=== PATIENT | female | born 1995 | race Caucasian/White ===

== ENCOUNTER 2016-10-08 16:36 | Emergency (ER) | payer OTHER ==
[~2016-10-08] VITALS: Ht 170.2 cm; Wt 59.0 kg
[2016-10-08 17:46] VITALS: BP 122/70
[2016-10-08] MEDS ORDERED: HYDR-971 PO (18:30)
--- NOTE | 2016-10-08 18:30 | PHYS DOC ---
Past Medical History Past Medical History: Other Additional Past Medical Histor: DVT Past Surgical History: No Surgical History Alcohol Use: None Drug Use: None Adult General Chief Complaint Chief Complaint: HAND PROBLEM HPI HPI Patient is a 20 year old female presents emergency department stating that she was roughhousing earlier today around 3:00 when she heard a pop in her left hand. She states she's had increased pain in the hand area along the fifth metacarpal. Patient states that her fingers feel little: The cap refill is brisk less than 2 seconds. She is able to move the fingers without difficulty. Patient states she took her hydrocodone on the way into the emergency department. Patient was right hand dominant. Review of Systems Review of Systems Constitutional: Denies fever or chills [] Eyes: Denies change in visual acuity, redness, or eye pain [] HENT: Denies nasal congestion or sore throat [] Respiratory: Denies cough or shortness of breath [] Cardiovascular: No additional information not addressed in HPI [] GI: Denies abdominal pain, nausea, vomiting, bloody stools or diarrhea [] : Denies dysuria or hematuria [] Musculoskeletal: Denies back pain.. Left hand pain Integument: Denies rash or skin lesions [] Neurologic: Denies headache, focal weakness or sensory changes [] Endocrine: Denies polyuria or polydipsia [] Allergies Allergies Allergies Coded Allergies Type Severity Reaction Last Updated Verified promethazine Allergy Intermediate 10/08/16 Yes Physical Exam Physical Exam Constitutional: Well developed, well nourished, no acute distress, non-toxic appearance. [] HENT: Normocephalic, atraumatic, bilateral external ears normal, oropharynx moist, no oral exudates, nose normal. [] Eyes: PERRLA, EOMI, conjunctiva normal, no discharge. [] Neck: Normal range of motion, no tenderness, supple, no stridor. [] Cardiovascular:Heart rate regular rhythm, no murmur [] Lungs & Thorax: Bilateral breath sounds clear to auscultation [] Skin: Warm, dry, no erythema, no rash. [] Back: No tenderness Extremities: No tenderness, no cyanosis, no clubbing, ROM intact, no edema. Patient with tenderness noted along the left fifth metacarpal area. Swelling noted hands appear to be cool although patient's cap refill is brisk less than 2 seconds. Radial pulses 2+. Neurologic: Alert and oriented X 3, normal motor function, normal sensory function, no focal deficits noted. [] Psychologic: Affect normal, judgement normal, mood normal. [] Current Patient Data Vital Signs Vital Signs Date Time Temp Pulse Resp B/P (MAP) Pulse Ox O2 Delivery O2 Flow Rate FiO2 10/08/16 17:46 98.4 84 16 98 Room Air 98.4 EKG EKG [] Radiology/Procedures Radiology/Procedures [] Course & Med Decision Making Course & Med Decision Making Pertinent Labs and Imaging studies reviewed. (See chart for details) X-ray was positive for fifth metacarpal fracture on the left hand per Dr. Phelps. Patient will be placed in an on a gutter splint. Recommended ice packs on 20 minutes off 20 minutes several times a day elevation as much as possible. Patient will be provided with hydrocodone for severe pain and discomfort in which she was instructed will cause drowsiness do not take any be alert and oriented. Patient was encouraged to use ibuprofen 800 mg every 8 hours with food stop taking few develop an upset stomach. She was encouraged follow-up with orthopedic in the next week. Recommended keeping the splint in place avoid getting it wet. Patient agrees with discharge instructions treatment regimens and follow-up recommendations. Signs symptoms to return back to emergency department as been provided. [] Dragon Disclaimer Dragon Disclaimer This electronic medical record was generated, in whole or in part, using a voice recognition dictation system. Departure Departure Impression: Primary Impression: Fracture of fifth metacarpal bone of left hand Disposition: HOME, SELF-CARE Condition: STABLE Referrals: NON,STAFF (PCP) POOL KIRK MD Patient Instructions: Hand Fracture, Fifth Metacarpal, Splint Care, Easy-to- Read Additional Instructions: Activity as tolerated. Ibuprofen 800 mg every 8 hours with food stop taking few develop an upset stomach. Hydrocodone for severe pain and discomfort this medication will cause drowsiness do not take any be alert and oriented. Ice packs on 20 minutes off 20 minutes several times a day. Elevation as much as possible. Keep the splint in place until you follow-up with orthopedic. Follow-up with orthopedic within the next week. Return back to emergency department for signs and symptoms of become worse. Scripts Hydrocodone/Apap 5-325 (NORCO 5-325 TABLET) 1 Each Tablet 1 TAB PO PRN Q6HRS Y for PAIN, #20 TAB 0 Refills Prov: ASH LANG APRN 10/08/16 Splinting Splinting : Location: left hand Hand-Made Type: orthoglass Splint: ulnar Progress Left hand continues to fill cool although cap refill appears to be brisk. Patient with good sensation noted to the hands. ASH LANG APRN Oct 08, 2016 18:30
[2016-10-08] MEDS ORDERED: IBUPROFEN 800 MG TABLET. PO ONE (19:45)
--- NOTE | 2016-10-09 08:38 | RAD ---
Left hand, 3 views, 10/08/2016: History: Hand pain and discomfort There is a fracture of the midportion of the fifth metacarpal without significant displacement or angulation. No other fracture or dislocation is identified. IMPRESSION: Acute nondisplaced fifth metacarpal fracture. Note: The findings were called to personnel in the [facility] ER at 8:35 AM on 10/09/2016.
== END 2016-10-08 19:15 | disposition home or self-care (01) ==
LOC: ER 16:36
DX: S62.307A Unspecified fracture of fifth metacarpal bone, left hand, initial encounter for closed fracture (principal); Z88.8 Allergy status to other drugs, medicaments and biological substances; Z86.718 Personal history of other venous thrombosis and embolism; X58.XXXA Exposure to other specified factors, initial encounter; Y93.83 Activity, rough housing and horseplay; Y92.89 Other specified places as the place of occurrence of the external cause; Y99.8 Other external cause status
CPT/HCPCS: 29125; 73130; 99284-25

== ENCOUNTER 2016-11-25 17:43 | Emergency (ER) | payer OTHER ==
[~2016-11-25] VITALS: Ht 167.6 cm; Wt 52.2 kg
[~2016-11-25 17:43] MED LIST: HYDR-971 PO
[2016-11-25 18:33] LABS: BARBITURATES NEG (NEG); BENZODIAZEPINES NEG (NEG); CANNABINOIDS NEG (NEG); COCAINE NEG (NEG); METHADONE NEG (NEG); OPIATES NEG (NEG); PHENCYCLIDINE NEG (NEG)
[2016-11-25 18:43] LABS: BASO % 1 % (0-3); EOS % 1 % (0-3); HEMATOCRIT 37.6 % (36.0-47.0); HEMOGLOBIN 12.8 g/dL (12.0-15.5); LYMPH # 1.7 x10^3/uL (1.0-4.8); LYMPH % 33 % (24-48); MEAN CORPUSCULAR HEMOGLOBIN 30 pg (25-35); MEAN CORPUSCULAR HGB CONC 34 g/dL (31-37); MEAN CORPUSCULAR VOLUME 89 fL (79-100); MONO % 7 % (0-9); NEUT % 59 % (31-73); PLATELET COUNT 161 x10^3/uL (140-400); RED BLOOD COUNT 4.24 x10^6/uL (3.50-5.40); RED CELL DISTRIBUTION WIDTH 15.4 % (11.5-14.5); WHITE BLOOD COUNT 5.2 x10^3/uL (4.0-11.0)
[2016-11-25 18:55] LABS: CALCIUM 9.1 mg/dL (8.5-10.1); GFR 68.7; POTASSIUM 3.8 mmol/L (3.5-5.1)
[2016-11-25 18:59] LABS: ETHANOL < 10 mg/dL (0-10)
[2016-11-25 19:01] LABS: ALBUMIN 4.1 g/dL (3.4-5.0); ALBUMIN/GLOBULIN RATIO 1.3 (1.0-1.7); TOTAL BILIRUBIN 0.1 mg/dL (0.2-1.0); TOTAL PROTEIN 7.2 g/dL (6.4-8.2)
[2016-11-25 19:39] VITALS: BP 117/74
--- NOTE | 2016-11-25 19:44 | PHYS DOC ---
Past Medical History Past Medical History: Other Additional Past Medical Histor: DVT Past Surgical History: No Surgical History Alcohol Use: Occasionally Drug Use: None Adult General Chief Complaint Chief Complaint: OVERDOSE HPI HPI Patient is a 21 year old female who presents with intentional overdose. The patient states shortly prior to arrival she took 16 x 20 mg tablets of atorvastatin with intention to kill herself. She states she also drank half a can of beer. She currently denies suicidal ideation. States she was stressed out because her parents told her that her boyfriend was being unfaithful. She denies chest pain, palpitations, shortness of breath, abdominal pain, vomiting, diarrhea. She reports history of depressed mood, not on medication at this time. Review of Systems Review of Systems Constitutional: Denies fever or chills HENT: Denies nasal congestion or sore throat Respiratory: Denies cough or shortness of breath Cardiovascular: Denies chest pain GI: Denies abdominal pain, nausea, vomiting Musculoskeletal: Denies back pain or joint pain Integument: Denies rash Neurologic: Denies headache Psychiatric: Reports depressed mood & suicidal ideation. Allergies Allergies Allergies Coded Allergies Type Severity Reaction Last Updated Verified promethazine Allergy Intermediate 10/08/16 Yes Physical Exam Physical Exam Constitutional: Well developed, well nourished, no acute distress, non-toxic appearance. HENT: Normocephalic, atraumatic, bilateral external ears normal, oropharynx moist, nose normal. Eyes: PERRLA, EOMI, conjunctiva normal, no discharge. Neck: supple, no stridor. Cardiovascular: RRR, no murmurs, no edema. Lungs & Thorax: LCTAB, no wheezing, no respiratory distress. Abdomen: soft, nontender, nondistended. Skin: Warm, dry, no erythema, no rash. Back: No tenderness. Extremities: No tenderness, no edema. Neurologic: Alert and oriented X 3, no focal deficits noted. Psychologic: flat affect Current Patient Data Vital Signs Vital Signs Date Time Temp Pulse Resp B/P (MAP) Pulse Ox O2 Delivery O2 Flow Rate FiO2 11/25/16 19:39 84 117/74 (88) 99 Room Air 11/25/16 18:05 97.6 18 97.6 Lab Values Laboratory Tests Test 11/25/16 17:18 11/25/16 18:08 9/9/17 18:25 POC Urine HCG, Qualitative Hcg negative (Negative) Urine Opiates Screen Neg (NEG) Urine Methadone Screen Neg (NEG) Urine Barbiturates Neg (NEG) Urine Phencyclidine Screen Neg (NEG) Urine Amphetamine/Methamphetamine Pos (NEG) Urine Benzodiazepines Screen Neg (NEG) Urine Cocaine Screen Neg (NEG) Urine Cannabinoids Screen Neg (NEG) Urine Ethyl Alcohol Neg (NEG) White Blood Count 5.2 x10^3/uL (4.0-11.0) Red Blood Count 4.24 x10^6/uL (3.50-5.40) Hemoglobin 12.8 g/dL (12.0-15.5) Hematocrit 37.6 % (36.0-47.0) Mean Corpuscular Volume 89 fL (79-100) Mean Corpuscular Hemoglobin 30 pg (25-35) Mean Corpuscular Hemoglobin Concent 34 g/dL (31-37) Red Cell Distribution Width 15.4 % (11.5-14.5) H Platelet Count 161 x10^3/uL (140-400) Neutrophils (%) (Auto) 59 % (31-73) Lymphocytes (%) (Auto) 33 % (24-48) Monocytes (%) (Auto) 7 % (0-9) Eosinophils (%) (Auto) 1 % (0-3) Basophils (%) (Auto) 1 % (0-3) Neutrophils # (Auto) 3.1 x10^3uL (1.8-7.7) Lymphocytes # (Auto) 1.7 x10^3/uL (1.0-4.8) Monocytes # (Auto) 0.4 x10^3/uL (0.0-1.1) Eosinophils # (Auto) 0.1 x10^3/uL (0.0-0.7) Basophils # (Auto) 0.0 x10^3/uL (0.0-0.2) Sodium Level 141 mmol/L (136-145) Potassium Level 3.8 mmol/L (3.5-5.1) Chloride Level 104 mmol/L (98-107) Carbon Dioxide Level 29 mmol/L (21-32) Anion Gap 8 (6-14) Blood Urea Nitrogen 15 mg/dL (7-20) Creatinine 1.0 mg/dL (0.6-1.0) Estimated GFR (Cockcroft-Gault) 68.7 BUN/Creatinine Ratio 15 (6-20) Glucose Level 85 mg/dL (70-99) Calcium Level 9.1 mg/dL (8.5-10.1) Total Bilirubin 0.1 mg/dL (0.2-1.0) L Aspartate Amino Transferase (AST) 21 U/L (15-37) Alanine Aminotransferase (ALT) 32 U/L (14-59) Alkaline Phosphatase 51 U/L (46-116) Creatine Kinase 112 U/L (26-192) Total Protein 7.2 g/dL (6.4-8.2) Albumin 4.1 g/dL (3.4-5.0) Albumin/Globulin Ratio 1.3 (1.0-1.7) Salicylates Level < 2.8 mg/dL (2.8-20.0) L Salicylate Last Dose Date Unk Salicylate Last Dose Time Unk Acetaminophen Level < 2.0 mcg/ml (10-30) L Acetaminophen Last Dose Date Unk Acetaminophen Last Dose Time Unk Ethyl Alcohol Level < 10 mg/dL (0-10) Laboratory Tests 11/25/16 18:25 Laboratory Tests 11/25/16 18:25 EKG EKG [] Radiology/Procedures Radiology/Procedures [] Course & Med Decision Making Course & Med Decision Making Pertinent Labs and Imaging studies reviewed. (See chart for details) The patient presents with intentional overdose. She is well appearing with stable vitals. John RN called poison control, advised no potential for acute toxicity with this medication. Obtained labs & UA, & consulted Cameron from the PAT team. Patient continues to decline current suicidality. He referred to [facility]. Recommend rest, hydration, follow up for ongoing psychiatric care. Return for suicidal thoughts or otherwise worsening condition. Discharged home in stable condition. [] Dragon Disclaimer Dragon Disclaimer This electronic medical record was generated, in whole or in part, using a voice recognition dictation system. Departure Departure Impression: Primary Impression: Intentional drug overdose Disposition: HOME, SELF-CARE Condition: STABLE Referrals: JEREMIAH STEARNS APRN (PCP) Patient Instructions: Overdose, Adult Additional Instructions: You were seen in the emergency department today for medication overdose. You were seen by mental health [employer] sales consultant. It is okay to go home. Only take medications prescribed for you in the amount prescribed. Please follow-up as directed at the guidance center. It is very important to seek help. Return to the emergency department for suicidal thoughts or otherwise worsening condition. GAL FLORIAN MD Nov 25, 2016 19:44
== END 2016-11-25 19:50 | disposition home or self-care (01) ==
LOC: ER 17:43
DX: T46.6X2A Poisoning by antihyperlipidemic and antiarteriosclerotic drugs, intentional self-harm, initial encounter (principal); F32.9 Major depressive disorder, single episode, unspecified; Y92.89 Other specified places as the place of occurrence of the external cause
CPT/HCPCS: 36415; 80053; 80307; 80329; 81025; 82550; 85025; 99284; G0480; G0479

== ENCOUNTER 2021-07-02 10:10 | Emergency (ER) | payer MEDICAID, OTHER ==
[~2021-07-02] VITALS: Ht 167.6 cm; Wt 86.3 kg
[~2021-07-02 10:10] MED LIST changes: +HYDR-3164 PO; -HYDR-971 PO
[2021-07-02 10:25] VITALS: BP 110/63
--- NOTE | 2021-07-02 10:43 | PHYS DOC ---
Past Medical History Past Medical History: Other Additional Past Medical Histor: DVT Past Surgical History: No Surgical History Smoking Status: Current Every Day Smoker Alcohol Use: Occasionally Drug Use: None General Adult EDM: Chief Complaint: FOOT INJURY PAIN HPI: HPI: Patient is a 25 year old female who presents with patient states she was moving a couch with her last night and she told him to push her way and he pushed too hard and she fell twisting her left ankle. She states last night she is able to get up and walk on it. She states however this morning she is unable to when she has swelling. Patient rates her pain at a 5 out of 10 at this time. Because go from the distal tib-fib down into the foot. She denies numbness or tingling, coolness to the extremity, hitting her head, dizziness, headache, back pain. History of DVT and smoking. Review of Systems: Review of Systems: Constitutional: Denies fever or chills. [] Eyes: Denies change in visual acuity. [] HENT: Denies nasal congestion or sore throat. [] Respiratory: Denies cough or shortness of breath. [] Cardiovascular: Denies chest pain or +Left foot edema. +Left ankle edema[] GI: Denies abdominal pain, nausea, vomiting, bloody stools or diarrhea. [] : Denies dysuria. [] Musculoskeletal: Denies back pain or +Left ankle joint pain. +Left tib fib[] Integument: Denies rash. +Left foot bruising Neurologic: Denies headache, focal weakness or sensory changes. [] Endocrine: Denies polyuria or polydipsia. [] Lymphatic: Denies swollen glands. [] Psychiatric: Denies depression or anxiety. [] Heart Score: C/O Chest Pain: No Allergies: Allergies: Allergies Coded Allergies Type Severity Reaction Last Updated Verified codeine Allergy Intermediate 07/02/21 Yes promethazine Allergy Intermediate 10/08/16 Yes Physical Exam: PE: Constitutional: Well developed, well nourished, no acute distress, non-toxic appearance. [] HENT: Normocephalic, atraumatic, bilateral external ears normal, oropharynx moist, no oral exudates, nose normal. [] Eyes: PERRLA, EOMI, conjunctiva normal, no discharge. [] Neck: Normal range of motion, no tenderness, supple, no stridor. [] Cardiovascular:Heart rate regular rhythm, no murmur [] Lungs & Thorax: Bilateral breath sounds clear to auscultation [] Abdomen: Bowel sounds normal, soft, no tenderness, no masses, no pulsatile masses. [] Skin: Warm, dry, no erythema, no rash. Left lateral foot bruising[] Back: No tenderness, no CVA tenderness. [] Extremities: Left medial and lateral ankle/tib fib tenderness, no cyanosis, no clubbing, Left ankle ROM not intact, left ankle and foot 3+ edema. [] Neurologic: Alert and oriented X 3, normal motor function, normal sensory function, no focal deficits noted. [] Psychologic: Affect normal, judgement normal, mood normal. [] Current Patient Data: Vital Signs: Vital Signs Date Time Temp Pulse Resp B/P (MAP) Pulse Ox O2 Delivery O2 Flow Rate FiO2 07/02/21 10:25 97.4 90 16 110/63 (79) 100 Room Air 97.4 EKG: EKG: [] Radiology/Procedures: Radiology/Procedures: [] Impression: [facility] [address] [place] [address] IMAGING REPORT Signed PATIENT: ROULA NIÑO ACCOUNT: [id number] : 1995 LOCATION: ER AGE: 25 SEX: F EXAM STATUS: REG ER ORD. PHYSICIAN: ASH MEDEL APRN REASON: twisting injury, pain, swelling, can not bare weight PROCEDURE: TIBIA FIBULA LEFT Exam performed: X-ray left tibia fibula, foot and ankle. HISTORY: Twisting injury, pain and swelling, patient is unable to bear weight. DATE OF SERVICE: 07/02/2021. COMPARISON: None available FINDINGS: AP, lateral and oblique views of the left ankle demonstrates a oblique fracture distal left fibula with diffuse overlying soft tissue swelling. The ankle joint appears preserved. There is no soft tissue foreign body. AP, lateral and oblique views of the left foot demonstrates normal alignment. There is no acute fracture or dislocation. No soft tissue swelling or foreign body seen. AP and lateral view of the left tibia fibula demonstrates a nondisplaced oblique fracture distal fibula. There is mild soft tissue swelling. No foreign body. IMPRESSION: Oblique fracture distal fibula with diffuse overlying soft tissue swelling. No acute abnormality seen in the x-ray foot. Electronically signed by: Arcelia Major MD (07/02/2021 12:31 PM) [facility] DICTATED and SIGNED BY: ARCELIA MAJOR MD DATE: 07/02/21 1230 Course & Med Decision Making: Course & Med Decision Making Pertinent Labs and Imaging studies reviewed. (See chart for details) See HPI. Alert and oriented x4. Ambulatory steady but limping on left lower extremity. Left lower extremity 2-3+ swelling with bruising to the left lateral foot. Tenderness to the medial and lateral ankle and distal tib-fib area. Unable to have range of motion due to swelling, and pain. Speaks in full clear sentences. No abrasion or lacerations. Pedal pulse strong present. Cap refill less than 2 seconds. [] Dragon Disclaimer: Dragon Disclaimer: This electronic medical record was generated, in whole or in part, using a voice recognition dictation system. Departure Departure Impression: Primary Impression: Closed fibular fracture Qualified Codes: S82.832A - Other fracture of upper and lower end of left fibula, initial encounter for closed fracture Disposition: HOME / SELF CARE / HOMELESS Condition: STABLE Referrals: JEREMIAH STEARNS APRN (PCP) AMEYA MAYS Jr. DO Patient Instructions: Fibular Fracture, Ankle, Adult, Treated with or without Immobilization Additional Instructions: Follow up with a Orthopedic doctor in the next week by calling and getting a appointment. Take medication as prescribed. Remain non weight bearing. Remember some pain medications can make you sleepy so do not drive, work, or operate heavy machinery. Use ice and elevation. Scripts Tramadol Hcl (TRAMADOL HCL) 50 Mg Tablet 50 MG PO Q6HRS PRN for PAIN, #20 TAB Prov: ASH MEDEL APRN 07/02/21 Ibuprofen (IBUPROFEN) 600 Mg Tablet 600 MG PO PRN Q6HRS PRN for INFLAMMATION, #30 TAB Prov: ASH MEDEL APRN 07/02/21 ASH MEDEL APRN Jul 02, 2021 10:43
--- NOTE | 2021-07-02 12:34 | RAD ---
Exam performed: X-ray left tibia fibula, foot and ankle. HISTORY: Twisting injury, pain and swelling, patient is unable to bear weight. DATE OF SERVICE: 07/02/2021. COMPARISON: None available FINDINGS: AP, lateral and oblique views of the left ankle demonstrates a oblique fracture distal left fibula wi th diffuse overlying soft tissue swelling. The ankle joint appears preserved. There is no soft tissue foreign body. AP, lateral and oblique views of the left foot demonstrates normal alignment. There is no acute fract ure or dislocation. No soft tissue swelling or foreign body seen. AP and lateral view of the left tibia fibula demonstrates a nondisplaced oblique fracture distal fibu la. There is mild soft tissue swelling. No foreign body. IMPRESSION: Oblique fracture distal fibula with diffuse overlying soft tissue swelling. No acute abnormality seen in the x-ray foot. Electronically signed by: Arcelia Major MD (07/02/2021 12:31 PM) [facility]
[2021-07-02] MEDS ORDERED: IBUP-1007 PO (12:45)
[2021-07-02] MEDS ORDERED: TRAM50TA PO (12:45)
== END 2021-07-02 13:03 | disposition home or self-care (01) ==
LOC: ER 10:10
DX: S82.832A Other fracture of upper and lower end of left fibula, initial encounter for closed fracture (principal); F17.200 Nicotine dependence, unspecified, uncomplicated; Z86.718 Personal history of other venous thrombosis and embolism; W18.39XA Other fall on same level, initial encounter; Y93.89 Activity, other specified; Y92.89 Other specified places as the place of occurrence of the external cause; Y99.8 Other external cause status
CPT/HCPCS: 73590; 73610; 73630; 99284-25